=== PATIENT | male | born 1965 | race Caucasian/White ===

== ENCOUNTER → 2017-12-14 | Outpatient (CLI) | payer OTHER ==
[~2017-12-14] MED LIST: AMOX-559 PO; CEFU250 PO; CIPR-212 PO; FAM20 PO; IBU800 PO; KET10 PO; OXYC-865 PO; PANT40TA65 PO
[2017-12-14 09:22] LABS: PLATELET COUNT, AUTOMATED 242 K/uL (150-450)
[2017-12-14 09:38] LABS: LDL CHOLESTEROL 120 mg/dl
== END ==
LOC: LAB 09:02
PROVIDERS: ATTEND Nurse Practitioner Family
DX: Z00.01 Encounter for general adult medical examination with abnormal findings (principal); K44.9 Diaphragmatic hernia without obstruction or gangrene; R35.1 Nocturia; R07.9 Chest pain, unspecified
CPT/HCPCS: 36415; 82040; 82247; 82310; 82374; 82435; 82465; 82565; 82947; 83718; 84075; 84132; 84153; 84155; 84295; 84443; 84450; 84460; 84478; 84520; 85025

== ENCOUNTER → 2018-05-21 | Outpatient (CLI) | payer OTHER | LOC: RESP 01:34 | PROVIDERS: ATTEND Otolaryngology | DX: Z02.9 Encounter for administrative examinations, unspecified (principal) ==

== ENCOUNTER → 2018-06-10 | Outpatient (CLI) | payer OTHER | LOC: RESP 01:03 | PROVIDERS: ATTEND Otolaryngology | DX: G47.33 Obstructive sleep apnea (adult) (pediatric) (principal) ==

== ENCOUNTER → 2019-02-19 | Outpatient (CLI) | payer OTHER | LOC: RESP 19:32 | PROVIDERS: ATTEND Otolaryngology | DX: G47.33 Obstructive sleep apnea (adult) (pediatric) (principal); G47.36 Sleep related hypoventilation in conditions classified elsewhere ==

== ENCOUNTER 2019-07-07 08:53 | Emergency (ER) | payer OTHER ==
[2019-07-07] MEDS ORDERED: ASPIRIN 81 MG CHEW CHEW ONE (09:00)
[2019-07-07] MEDS ORDERED: NS(*) 0.9% 1000 ML BAG 1,000 ML IV ONE (09:00)
--- NOTE | 2019-07-07 09:14 | EKG ---
FACILITY: [facility] PATIENT NAME: AINSLEY ROJAS : [id number] MR: [id number] V: [id number] EXAM DATE: ORDERING PHYSICIAN: KULDEEP MORAN TECHNOLOGIST: SRINIVASA Test Reason : CP Blood Pressure : / mmHG Vent. Rate : 102 BPM Atrial Rate : 102 BPM P-R Int : 158 ms QRS Dur : 088 ms QT Int : 342 ms P-R-T Axes : 055 055 059 degrees QTc Int : 445 ms Sinus tachycardia Otherwise normal ECG When compared with ECG of 02-FEB-2014 11:54, No significant change was found Confirmed by Manpreet Rosado ([id number]) on 07/07/2019 11:36:18 AM Referred By: VICTOR HUGO Confirmed By:Manpreet Landaverde
[2019-07-07 09:15] LABS: PLATELET COUNT, AUTOMATED 264 K/uL (150-450)
--- NOTE | 2019-07-07 09:24 | ER Report ---
History and Physical Time Seen By MD: 09:20 Hx. of Stated Complaint: chest pain started 30 min ago. no cardiac history HPI/ROS No meds, no PMH, does not smoke. [place] in his [employer] this morning before work. 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 Was checking in a customer at 0800 when he experienced chest pain which radiated to his jaw. Said he felt diaphoretic and nauseous. Sat down, and symptoms continued. Had a co-worker bring him to the ED where the symptoms started to resolve. No recent trauma. Pt. is visibly anxious during interview. Also complains of being cold. Never had cardiac problems or workup. Has local [employer] as PCM. No recent long car/plane trips. Remainder of the 14 system rev: Yes Allergies: Coded Allergies: No Known Drug Allergies (Unverified , 04/09/15) Home Meds Discontinued Scripts Pantoprazole Sodium (PANTOPRAZOLE SODIUM) 40 Mg Tablet.dr, 40 MG PO QDAY, #30 TAB.SR 3 Refills Prov:RAMYA ALARCON MD 12/07/16 Reviewed Nurses Notes: Yes Old Medical Records Reviewed: Yes Hx Smoking: No Smoking Status: Never Smoker Exposure to Second Hand Smoke?: No Hx Substance Use Disorder: No Hx Alcohol Use: Yes Constitutional Vital Sign - Last 24 Hours 07/07/19 07/07/19 07/07/19 07/07/19 08:53 08:56 09:00 09:08 Temp 97.7 Pulse 117 123 ??? Resp 13 22 B/P (MAP) 159/104 171/110 (130) Pulse Ox 96 95 97 O2 Delivery Room Air 07/07/19 07/07/19 07/07/19 07/07/19 09:14 09:23 09:30 09:31 Pulse 94 Resp 15 B/P (MAP) 160/106 (124) 156/105 (122) 153/95 (114) Pulse Ox 96 07/07/19 07/07/19 07/07/19 07/07/19 09:36 09:37 09:38 09:51 Pulse 97 Resp 13 B/P (MAP) 142/106 (118) 151/98 (115) 137/89 (105) Pulse Ox 95 07/07/19 07/07/19 07/07/19 07/07/19 09:53 10:00 10:08 10:23 Pulse 93 94 96 Resp 14 16 51 B/P (MAP) 122/85 (97) Pulse Ox 97 96 88 07/07/19 07/07/19 07/07/19 07/07/19 10:26 10:38 10:40 10:55 Pulse 85 87 91 Resp 11 11 12 Pulse Ox 94 94 95 O2 Flow Rate 2.0 07/07/19 07/07/19 07/07/19 07/07/19 11:10 11:25 11:40 11:55 Pulse 92 85 84 82 Resp 11 13 16 13 Pulse Ox 95 94 92 95 07/07/19 07/07/19 07/07/19 07/07/19 12:10 12:25 12:30 12:45 Pulse 80 84 83 85 Resp 13 13 13 14 Pulse Ox 93 94 94 95 07/07/19 13:00 Pulse 80 Resp 10 Pulse Ox 93 Physical Exam General Appearance: The patient is alert, has no immediate need for airway protection and no current signs of toxicity. Eyes: Pupils equal and round no injection. Respiratory: Chest is non tender, lungs are clear to auscultation. Cardiac: regular rate and rhythm Gastrointestinal: Abdomen is soft and non tender, no masses, bowel sounds normal. Neck: Neck is supple and non tender. Extremities have full range of motion and are non tender. Skin: No rashes or lesions. DIFFERENTIAL DIAGNOSIS: After history and physical exam differential diagnosis was considered for chest pain including but not limited to myocardial ischemia, pericarditis pulmonary embolus, chest wall pain, pleural inflammation and pulmonary infectious causes. Medical Decision Making Data Points Result Diagram: 07/07/1990007/07/19 09 Laboratory Hematology Test 07/07/19 09:01 White Blood Count 7.1 k/uL (4.5-11.0) Red Blood Count 5.54 M/uL (4.00-5.60) Hemoglobin 17.2 g/dL (14.0-18.0) Hematocrit 49.6 % (42.0-52.0) Mean Corpuscular Volume 89.6 fL (80.0-96.0) Mean Corpuscular Hemoglobin 31.0 pg (26.0-33.0) Mean Corpuscular Hemoglobin Concent 34.6 g/dL (32.0-36.0) Red Cell Distribution Width 14.4 % (11.5-14.5) Platelet Count 264 K/uL (150-450) Mean Platelet Volume 7.6 fL (7.2-11.1) Neutrophils (%) (Auto) 44.5 % (39.4-72.5) Lymphocytes (%) (Auto) 37.9 % (17.6-49.6) Monocytes (%) (Auto) 13.0 % (4.1-12.4) H Eosinophils (%) (Auto) 3.6 % (0.4-6.7) Basophils (%) (Auto) 1.0 % (0.3-1.4) Nucleated RBC Relative Count (auto) 0.0 /100WBC Neutrophils # (Auto) 3.2 K/uL (2.0-7.4) Lymphocytes # (Auto) 2.7 K/uL (1.3-3.6) Monocytes # (Auto) 0.9 K/uL (0.3-1.0) Eosinophils # (Auto) 0.3 K/uL (0.0-0.5) Basophils # (Auto) 0.1 K/uL (0.0-0.1) Nucleated RBC Absolute Count (auto) 0.00 K/uL Chemistry Test 07/07/19 09:01 07/07/19 11:45 Sodium Level 139 mmol/L (137-145) Potassium Level 3.7 mmol/L (3.5-5.0) Chloride Level 105 mmol/L (98-107) Carbon Dioxide Level 22 mmol/L (22-30) Blood Urea Nitrogen 17 mg/dl (9-21) Creatinine 0.90 mg/dl (0.66-1.25) Glomerular Filtration Rate Calc > 60.0 Random Glucose 101 mg/dl (75-110) Calcium Level 9.7 mg/dl (8.4-10.2) Total Bilirubin 0.7 mg/dl (0.2-1.3) Aspartate Amino Transf (AST/SGOT) 25 U/L (0-35) Alanine Aminotransferase (ALT/SGPT) 41 U/L (0-56) Alkaline Phosphatase 89 U/L (0-126) Total Protein 7.6 g/dl (6.3-8.2) Albumin 4.6 g/dl (3.5-5.0) Troponin I < 0.012 ng/ml Coagulation Test 07/07/19 09:01 D-Dimer Quantitative (PE/DVT) < 0.27 ug/ml (0-0.50) Urinalysis Test 07/07/19 10:21 Urine Color Yellow Urine Clarity Clear Urine pH 5.0 pH (4.8-9.5) Urine Specific [place] 1.011 Urine Protein Negative mg/dL (NEGATIVE) Urine Glucose (UA) Negative mg/dL (NEGATIVE) Urine Ketones Negative mg/dL (NEGATIVE) Urine Blood Negative (NEGATIVE) Urine Nitrite Negative (NEGATIVE) Urine Bilirubin Negative (NEGATIVE) Urine Urobilinogen Negative mg/dL (0.2-1.9) Urine Leukocyte Esterase Negative (NEGATIVE) Urine RBC None /HPF (0-2/HPF) Urine WBC <1 /HPF (0-5/HPF) Urine Squamous Epithelial Cells Few /LPF (</=FEW) Urine Bacteria Negative /HPF (NONE-FEW) Urine Mucus None /HPF (NONE-FEW) ED Course/Re-evaluation ED Course The patient was give ASA and nitroglycerin with relief of symptoms. Repeat EKGs show no acute changes. 2 troponins taken 4 hours apart are both negative. CTA of the chest to evaluate for dissection is negative. D-dimer negative. Initial BP was high. Could have been from pain or pain secondary to high BP. Pt. feels improved after hours in the ED. I talked to both he and his extensively about the findings/workup. He is scheduled for a treadmill stress test tomorrow morning. I gave them strict instructions to return to the ED if the chest pain returns. In the meantime, I told him to go home and rest today as well as tomorrow after the stress test. The patient's will call the PCM today to let them know the stress test results will be coming. Patient and his expressed understanding of all of the directions. Decision to Disposition Date: Jul 07, 2019 Decision to Disposition Time: 13:00 Depart Departure Latest Vital Signs Vital Signs Date Time Temp Pulse Resp B/P (MAP) Pulse Ox O2 Delivery O2 Flow Rate FiO2 07/07/19 13:00 80 10 93 07/07/19 10:26 2.0 07/07/19 10:00 122/85 (97) 07/07/19 08:56 97.7 Room Air Impression: Primary Impression: Chest pain of uncertain etiology Condition: Improved Disposition: HOME OR SELF-CARE Referrals: VERONIKA GUERRA (PCP) Patient Instructions: Chest Pain (ED) Additional Instructions: Go to your stress test as scheduled for tomorrow morning. Return to the ED if your symptoms persist. KULDEEP MORAN MD Jul 07, 2019 09:24
[2019-07-07] MEDS ORDERED: NITROGLYCERIN 0.4 MG SUBL SL ONE ×2 (09:33→09:40)
--- NOTE | 2019-07-07 09:44 | RADIOLOGY IMAGING REPORT ---
FACILITY: [facility] PATIENT NAME: Raj Harrington : 1965 MR: [id number] V: [id number] EXAM DATE: ORDERING PHYSICIAN: KULDEEP MORAN TECHNOLOGIST: Location: [facility] - [place] Patient: Raj Harrington : 1965 Visit/Account:[id number] Date of Sevice: 07/07/2019 Exam type: CHEST PA LAT History: chest pain Comparison: None. Findings: The lungs are free of acute effusions, infiltrates or edema. There is no evidence of a pneumothorax or pneumomediastinum. The cardiac silhouette is normal in size. A metallic density projects over th e midline of the lower neck on the PA view. This could be an artifact from patient's skin or clothin g although clinical correlation needed. Surgical clips are present in the right upper quadrant abdom en IMPRESSION: 1. No evidence of acute pulmonary consolidation Metallic density projects over the lower neck in the midline on the PA view. This could be artifact however clinical correlation needed Report Dictated By: Stacey Perdomo MD at 07/07/2019 9:32 AM Report E-Signed By: Stacey Perdomo MD at 07/07/2019 9:35 AM WSN:[id number]
[2019-07-07 10:00] VITALS: BP 122/85
[2019-07-07] MEDS ORDERED: MORPHINE 2 MG/ML SYR IVP ONE (10:00)
[2019-07-07] MEDS ORDERED: NS(*) 0.9% 50 ML BAG 50 ML ONE (11:29)
[2019-07-07] MEDS ORDERED: IOPAMIDOL 76% 100 ML INFUS BTL 100 ML ONE (11:29)
--- NOTE | 2019-07-07 12:36 | RADIOLOGY IMAGING REPORT ---
FACILITY: [facility] PATIENT NAME: Raj Harrington : 1965 MR: [id number] V: [id number] EXAM DATE: ORDERING PHYSICIAN: KULDEEP MORAN TECHNOLOGIST: Location: [facility] Patient: Raj Harrington : 1965 Visit/Account:[id number] Date of Sevice: 07/07/2019 CT CTA CHEST W & W/O CON HISTORY: severe stuttering cp with HTN TECHNIQUE: CTA chest with intravenous contrast attention to pulmonary arteries. Sagittal, coronal a nd slab 3D MIP coronal reconstructed images were also created for further evaluation and interpretati on. One of the following dose optimization techniques was utilized in the performance of this exam: Autom ated exposure control; adjustment of the mA and/or kV according to the patient's size; or use of an i terative reconstruction technique. Specific details can be referenced in the facility's radiology CT exam operational policy. CONTRAST: Isovue-370 100 mL. COMPARISON: None. FINDINGS: Heart and great vessels: No CT evidence for acute aortic pathology. The aorta demonstrates normal co urse and caliber and there are no atherosclerotic changes of the aortic valve. Mild motion degraded d egradation, likely respiratory and cardiac motion at the sinus of Valsalva. Arch vessels are widely p atent. The heart is not enlarged. No pleural or pericardial effusion. Lungs: Central airways are patent. Reticular interstitial changes at the dependent lung bases, atelec tasis versus scarring. Pulmonary Vessels: Negative. Blanca: Negative. Pleura: Negative. Chest Wall: No thyroid lesions. No axillary lymphadenopathy. Bones: Negative. Visualized upper abdomen: Negative. IMPRESSION: No CT evidence for acute aortic pathology. Report Dictated By: Steve Naqvi MD at 07/07/2019 12:19 PM Report E-Signed By: Steve Naqvi MD at 07/07/2019 12:27 PM WSN:[id number]
--- NOTE | 2019-07-07 13:47 | EKG ---
FACILITY: [facility] [place] PATIENT NAME: AINSLEY ROJAS : [id number] MR: [id number] V: [id number] EXAM DATE: ORDERING PHYSICIAN: KULDEEP MORAN TECHNOLOGIST: CHRISTA Zavaleta Reason : REPEAT Blood Pressure : / mmHG Vent. Rate : 097 BPM Atrial Rate : 100 BPM P-R Int : 134 ms QRS Dur : 082 ms QT Int : 352 ms P-R-T Axes : 062 040 055 degrees QTc Int : 447 ms Sinus Rhythm Otherwise normal ECG When compared with ECG of 07-JUL-2019 08:51, No significant change was found Confirmed by Manpreet Rosado ([id number]) on 07/08/2019 7:10:55 AM Referred By: LUISA Confirmed By:Manpreet Landaverde
== END 2019-07-07 13:15 | disposition home or self-care (01) ==
LOC: ER 09:26
DX: R07.9 Chest pain, unspecified (principal)
CPT/HCPCS: 71046; 71275; 81001; 84484; 85025; 85379; 93005; 96361; 96374; 99285; J2270; J7030; J7050; Q9967; 82040; 82247; 82310; 82374; 82435; 82565; 82947; 84075; 84132; 84155; 84295; 84450; 84460; 84520

== ENCOUNTER → 2019-07-08 | Outpatient (CLI) | payer OTHER ==
--- NOTE | 2019-07-08 16:45 | RT STRESS TEST REPORT ---
[place] [facility] [place] AISNLEY ROJAS : [id number] MR: [id number] V: [id number] EXAM DATE: ORDERING PHYSICIAN: KULDEEP MORAN TECHNOLOGIST: Albert Acquisition Time: 2019-07-08 11:11:14 Total Exercise Time: 00:05:58 Test Indications: Chest Pain / Discomfort Medications: See chart. Protocol: BRUCE2 Max HR: 155 BPM 93% of Pred: 165 BPM Max BP: 183/090 mmHG Max Work Load: 7.0 METS No Ischemic changes noted during the stress test Impression Negative for ischemic changes Resting B.P. was elevated Confirmed by HARIKA KEE ([id number]) on 07/08/2019 4:41:08 PM Referred By: Overread By: HARIKA KEE
== END ==
LOC: RESP 02:31
PROVIDERS: ATTEND Emergency Medicine
DX: R07.9 Chest pain, unspecified (principal)
CPT/HCPCS: 93017

== ENCOUNTER → 2019-07-10 | Outpatient (CLI) | payer OTHER | LOC: LAB 07:36 | PROVIDERS: ATTEND Nurse Practitioner Family | DX: Z00.00 Encounter for general adult medical examination without abnormal findings (principal); G80.9 Cerebral palsy, unspecified; I10 Essential (primary) hypertension | CPT/HCPCS: 36415; 82465; 83718; 84478 ==